=== PATIENT | male | born 1960 | race Caucasian/White ===

== ENCOUNTER 2024-12-10 05:59 | Inpatient (IN) | payer OTHER, SELFPAY ==
[2024-12-10] VITALS (9 sets, daily range): BP systolic 129–153; BP diastolic 74–88; BMI 27.1; BMI 26.3
[2024-12-10 03:59] LABS: Hematocrit 44.2 % (39.0-52.0); Hemoglobin 15.3 g/dL (13.0-18.0); Mean Corp Hgb Conc. 34.6 g/dL (33.0-37.0); Mean Corpuscular Volume 88.9 fL (80.0-94.0); Nucleated Red Blood Cells % 0 % (-); Platelet Count 150 10^3/uL (130-400); Red Cell Dist. Width 11.9 % (11.5-14.5)
[2024-12-10 04:19] LABS: Urine Character Clear (Clear)
[2024-12-10 04:26] LABS: ALT (SGPT) 545 U/L (0-50); AST (SGOT) 544 U/L (17-59); Albumin 4.8 g/dl (3.5-5.0); Alkaline Phosphatase 200 U/L (38-126); Blood Urea Nitrogen 15 mg/dl (9-20); Calcium 9.9 mg/dl (8.4-10.2); Carbon Dioxide 30 mmol/L (22-30); Chloride 107 mmol/L (98-107); Estimated Creatinine Clearance 81 ml/min; Glucose 103 mg/dl (70-99); Lipase 99 U/L (23-300); Potassium 4.3 mmol/L (3.5-5.1); Sodium 142 mmol/L (135-145); Total Protein 7.5 g/dl (6.3-8.2); eGFR > 60.00
[2024-12-10 04:48] LABS: Urine Squamous Cell 0-2 /LPF (Few)
[2024-12-10] MEDS: ZOFRAN 4 MG IV (04:49)
[2024-12-10] MEDS: DILAUDID 0.5 MG IV (04:49)
--- NOTE | 2024-12-10 05:20 | ED.GENMED ---
History of Present Illness
General
Chief Complaint: Abdominal Pain
Source: patient
Exam Limitations: none
Time Seen by Provider: 12/10/24 03:41
Nursing documentation reviewed up to this point in time: agreed with
History of Present Illness
History of Present Illness:
Note:
CHIEF COMPLAINT(S)
Nausea, bloating, and headache.
HISTORY OF PRESENT ILLNESS
The patient is a 64-year-old male who presented with nausea and a sensation described as 'a bowling ball' in the stomach, beginning on Tuesday around 11 a.m. after having breakfast. The patient experienced bloating and discomfort throughout the day
and chose to rest and sleep despite the discomfort. On the subsequent day, the patient consumed a meal at 1 p.m., which exacerbated the symptoms, leading to extreme discomfort and bloating, yet without vomiting or diarrhea. The patient reported mild
constipation but denied any fever, chest pain, or dyspnea. A significant headache occurred, which the patient described as one of the worst ever experienced. The patient does not frequently experience headaches and did not take any medication due to
concerns about ibuprofen exacerbating stomach issues. The symptoms, especially the bloating, seem to occur postprandially. Despite owning a gallbladder, there was no significant tenderness, only generalized abdominal bloating. The patient noted that
the symptoms were intense during the night, particularly at 1 a.m. when attempting to sleep, but began to subside slightly.
PLAN
Consider performing a computed tomography (CT) scan to rule out any potential obstruction. Administer intravenous fluids to the patient and provide further medical intervention as needed based on the findings.
DIFFERENTIAL DIAGNOSIS
The Differential Diagnosis includes, in no particular order and is not limited to:
1. Gallbladder disease
2. Gastroenteritis
3. Gastric outlet obstruction
4. Peptic ulcer disease
5. Gastric volvulus
6. Chronic gastritis
7. Intestinal obstruction
8. Gastroparesis
9. Irritable bowel syndrome
10. Acute pancreatitis
Disposition:
SUMMARY OF ENCOUNTER
The patient, a 64-year-old male, presented to the emergency department with two days of right upper quadrant abdominal pain intensified by food intake. The pain was most severe at night, prompting the visit. He denied symptoms like fever, chills,
nausea, or vomiting.
DISPOSITION
Admit.
ASSESSMENT
The patients symptoms and elevated liver function tests suggest a possible hepatobiliary condition or gallbladder-related issue.
MANAGEMENT OF THE PATIENTS CARE WAS DISCUSSED WITH
Consultation was conducted with Lin Casanova from Gastroenterology, who recommended that the patient could be admitted and undergo further evaluation in the morning.
PLAN
An MRI was planned for the following morning to further investigate the cause of the patients symptoms and elevated liver enzymes. The patient is to remain NPO (nil per os).
INDEPENDENT REVIEW OF LABS AND INTERPRETATION OF TESTS
My independent review of the lab work indicates an elevated total bilirubin and elevated liver function tests, including AST and ALT.
MEDICAL DECISION MAKING
-Complexity of Data Reviewed: Chronic conditions affecting care include the potential differential diagnosis of gallbladder disease or other hepatobiliary disorders. The DDx includes: Gastroenteritis, Gallbladder disease, Gastric outlet obstruction,
Peptic ulcer disease, Gastric volvulus, Chronic gastritis, Intestinal obstruction, Gastroparesis, Irritable bowel syndrome, Acute pancreatitis.
-Data:
Category 1: Lab tests reviewed showed elevated total bilirubin and elevated liver function tests (AST, ALT).
Category 3: Discussion of management with Lin Casanova, Gastroenterology, regarding patient care and the plan for an MRI and hospital admission.
DIAGNOSIS
Elevated liver function tests; possible hepatobiliary disorder (ICD-10: K75.9 - Inflammatory liver disease, unspecified).
Phy Exam
General Physical Exam
General Presentation: moderate distress
General age: appears stated age
General Skin: warm and dry
General Habitus: normal
General Mental: alert
General Hydration: appears well hydrated
ENT Exam
ENT Exam: EOMI, pharynx normal, neck supple and normocephalic
Eye Exam
Eye Exam: PERRL, cornea clear and conjunctiva normal
Cardiovascular Exam
Cardiovascular Exam: regular rate/rhythm, no edema, no murmur and normal peripheral pulses
Pulmonary Exam
Pulmonary Exam: lungs clear, no respiratory distress, no rales, no crackles, no rhonchi, no stridor, no wheezing and no cough
Gastrointestinal Exam
Gastrointestinal Exam: normal bowel sounds, non tender, soft, no organomegaly, no pulsatile mass and non distended
Neurological Exam
Neurological Exam: alert, oriented x3, no motor deficits and speech normal
Musculoskeletal Exam
Musculoskeletal Exam: full ROM and no edema
Skin Exam
Skin Exam: normal color, warm/dry, no rash and no petechia
Psychiatric Exam
Psychiatric Exam: normal mood/affect
Course
Orders/Labs/Results
Orders:
Orders
12/10/24 02:45
IV Insert/Care/Rem.- Treatment PRN
Straight cath- Treatment ONCE
12/10/24 03:47
Complete Blood Count/With Diff Urgent
Comprehensive Metabolic Panel Urgent
Lipase Urgent
Urinalysis Reflex To Culture Urgent
Date Specimen was Collected: 12/10/24
Time Specimen was Collected: 02:45
Urine Microscopic Reflex Cult Urgent
Urine Culture Urgent
COTY Source: U
Specimen Description:
Date Specimen was Collected: 12/10/24
Time Specimen was Collected: 02:45
12/10/24 03:54
CT Abd/pelvis W Iv Cont Urgent
Comment:
Reason For Exam: Diffuse abdominal pain with lower hyperactive bs
12/10/24 04:33
US Abdomen Complete/Upper Urgent
Comment:
Reason For Exam: abdominal pain
12/10/24 04:37
HYDROmorphone [Dilaudid] 0.5 mg IV NOW STA
Ondansetron Injectable [Zofran] 4 mg IV NOW STA
Abnormal Lab Results
12/10/24
03:47
MPV 11.9 H fL
(7.4-10.4)
Absolute Monos (auto) 0.7 H 10^3/uL
(0.1-0.6)
Monocytes % 11.1 H %
(1.7-9.3)
Glucose 103 H mg/dl
(70-99)
Total Bilirubin 6.3 H mg/dl
(0.2-1.3)
AST 544 H* U/L
(17-59)
ALT 545 H* U/L
(0-50)
Alkaline Phosphatase 200 H U/L
(38-126)
Urine Ketones 1+ A
(Negative)
Urine Bilirubin 2+ A
(Negative)
Urine Urobilinogen 4+ A
(Neg - 1+)
Leukocyte Esterase Rfl 1+ A
(Negative)
Urine RBC 3-6 A /HPF
(0-2)
Urine Bacteria (Reflex) Few A
(Negative)
Urine Albumin (Reflex) 1+ A
(Neg - Trace)
12/10/24 03:47
12/10/24 03:47
Vital Signs
Initial and Last Documented VS:
Initial Vital Signs
Temp Pulse Resp BP Pulse Ox
98.4 F 62 20 152/88 99
12/10/24 02:39 12/10/24 02:39 12/10/24 02:39 12/10/24 02:39 12/10/24 02:39
Last Documented Vital Signs
Temp Pulse Resp BP Pulse Ox
98.4 F 62 20 153/79 97
12/10/24 02:39 12/10/24 02:39 12/10/24 02:39 12/10/24 04:00 12/10/24 05:21
*Radiology
Radiology exam reviewed: radiology read reviewed
*Pulse Oximetry
SaO2: 97
Oxygen Mode of Delivery: Room air
Patient hypoxic: no
*Critical Care Note
Total Time (30-74mins, 75-104mins- exclusive of procedures): 41 (Critical care statement: A total of 41 minutes of critical care time was provided for this patient. This time is separate from time utilized to perform the aforementioned documented
procedures. Aggregate critical care time includes only time during which I was engaged in work directl)
Update Note
Update Note:
NAME: SUNITA DOE
DATE OF EXAM: 12/10/2024
Patient No: [id number]
Physician: KEISHA^Lroenzo
Date of : 1960
Past Medical History (entered by Technologist):
Reason For Exam (entered by Technologist):
Other Notes (entered by Technologist):
Additional Information (per [facility]): Right upper quadrant pain since Tuesday.
RUQ ABDOMINAL ULTRASOUND
IMPRESSION:
Bowel gas mildly decreases characterization
Normal bowel gallstones and sludge at the neck, possibly impacted. Gallbladder is mildly distended but no wall thickening. No sonographic Grant's sign (but the patient received pain medications). No or other signs of cholecystitis. Common bile
duct is dilated at 9 mm no definite filling defect in the duct however the distal duct is obscured by bowel gas. Constellation findings are nonspecific, if there is concern for choledocholithiasis consider MRCP.
Fatty liver
Pancreas is partially obscured secondary to overlying bowel gas.
Kidneys and spleen are unremarkable
Remainder of the visualized upper abdomen is unremarkable.
ED Attending Note
-
Portions of this chart may have been created with voice recognition software.� Occasional wrong word or��sound alike� substitutions may have occurred due to the inherent limitations of voice recognition software.
Discharge Plan
Departure
Patient Disposition: Admit
Date of Disposition: 12/10/24
Time of Disposition: 05:42
Presentation/result/management discussed w/ accepting MD/DO: Hospitalist
Discharge Problem:
Abdominal pain, Choledocholithiasis
Referrals:
Sharif Mathew DO [Family Provider, Family Practice]
Interventions
Interventions:
*Risk Screen - Suicide Last Done: 12/10/24 02:39
*General Assessment Last Done: 12/10/24 02:39
*Neglect/Abuse Screening Last Done: 12/10/24 02:39
*ED- Fall Risk Assessment Last Done: 12/10/24 02:39
*ED COVID-19 Vaccine History Last Done: 12/10/24 02:39
VZ-Xpyaan-Jwdqfiiypq Assessment Last Done: 12/10/24 03:58
Discharge Date and Time
Print Language: CITIZEN OF [place]
--- NOTE | 2024-12-10 05:43 | HPS.HSE ---
Family Physician
-
Family Physician: Sharif Mathew
Chief Complaint
-
Abdominal pain
History of Present Illness
This is a 64-year-old male who has no known significant past medical history and denies any daily medication use presents to the emergency department with 2 days of abdominal pain.
Patient reports that after having breakfast on Tuesday started having diffuse abdominal discomfort without any radiation. Reports nausea but denies any vomiting. He performed bowel rest himself and his symptoms slightly improved. However later
on the evening and the following morning he had breakfast again and the symptoms recurred. This time he has persistent symptoms unrelenting. Its associate with nausea but no vomiting. He denies having any diarrhea. He denies having any fevers or
chills. He is unable to localize it to any specific quadrant. Due to the unrelenting discomfort he said come to the emergency department for evaluation. He denies any prior surgeries. He denies any prior endoscopic procedures except for
screening colonoscopy.
In the emergency department patient was afebrile, blood pressure was 150/80 with a pulse of 62 satting 97% on room air.
CBC was unremarkable, electrolytes BUN and creatinine were all within the normal range, total bilirubin was 6.3, AST 544 ALT over 500 and alk phos 200. Lipase negative.
Ultrasound of the abdomen with gallstones and sludge at the neck possibly impacted, gallbladder is mildly distended with no wall thickening, no sonographic Grant sign. No other signs of cholecystitis. Common bile duct is dilated at 9 mm with no
definite filling defect.
Medical History
Past Medical History
Past Medical History: Reports None
Past Surgical History: Reports None
Social History
Tobacco: Non-smoker
Alcohol: None
Drug: None
Family History
Family History: Not pertinent
Allergies / Home Medications
Allergies reflects when Allergies were last updated in [facility].
Home Medications with original date entered in [facility]
Allergy/Medication List:
Allergies
Allergy/AdvReac Type Severity Reaction Status Date / Time
No Known Allergies Allergy Unverified 12/10/24 02:38
Review of Systems
-
Constitutional: Reports No Symptoms
EENT: Reports No Symptoms
Respiratory: Reports No Symptoms
Cardiac: Reports No Symptoms
Abdomen/GI: Reports Abdominal Pain and Nausea
: Reports No Symptoms
Musculoskeletal: Reports No Symptoms
Skin: Reports No Symptoms
Neurological: Reports No Symptoms
Endocrine: Reports No Symptoms
Hematologic/Lymphatic: Reports No Symptoms
Psych: Reports No Symptoms
Physical Exam
Vital Signs
Vital Signs
Temp Pulse Resp BP Pulse Ox
98.4 F 62 20 153/79 97
12/10/24 02:39 12/10/24 02:39 12/10/24 02:39 12/10/24 04:00 12/10/24 05:21
Physical Exam
General: Well Developed, Well Nourished and No Apparent Distress
HEENT: NormoCephalic, Moist mucous membranes and Atraumatic
Respiratory: Clear
Cardiac: S1/S2 and Regular Rhythm; No Murmur or Rub
GI: Soft, Non Tender, Non Distended and Normal Bowel Sounds; No Organomegaly
Rectal: Deferred by Provider
Musculoskeletal: No Clubbing, No Cyanosis and No Edema
Skin: No Rash
Neuro: Nonfocal/grossly intact
Laboratory Results
-
12/10/24 03:47
12/10/24 03:47
Laboratory Results
Total Bilirubin 6.3 mg/dl (0.2-1.3) H 12/10/24 03:47
AST 544 U/L (17-59) H* 12/10/24 03:47
ALT 545 U/L (0-50) H* 12/10/24 03:47
Alkaline Phosphatase 200 U/L (38-126) H 12/10/24 03:47
Lipase 99 U/L (23-300) 07/07/25 03:47
Data Reviewed
-
Ultrasound: Report Reviewed by me
Lab Data: Labs Reviewed by me
Old Records: Reviewed
Impression/Plan
-
IMPRESSION:
64-year-old with acute abdominal pain, found to have elevated total bilirubin of 6.3, AST of 500s and ALT in the 500s. Also elevated alk phos to 200. Lipase was normal. Right upper quadrant ultrasound with gallstones and sludge possibly impacted
at the neck of the gallbladder with dilation of the common bile duct to 9. Patient without any fevers chills or leukocytosis. No sonographic Grant sign. No evidence of acute cholecystitis. No evidence of cholangitis. Patient most likely
consistent with choledocholithiasis rather than other causes of her biliary obstruction.
PLAN:
Choledocholithiasis
-Admit to [facility]
-CT of the abdomen pelvis is pending from ED
-Discussed with gastroenterology, n.p.o. for now, no indication for MRCP given pretest probability patient likely can go straight to ERCP
-Pain control, IV fluids, antiemetics
-Trend LFTs
-surgery consult given possibility of impacted stones/sludge in neck of gallbladder
-Hold off antibiotics for now
DVT PPX - lovenox sq
Code status - Full Code
--- NOTE | 2024-12-10 07:29 | W.PN.HOSP.TC ---
Addendum entered and electronically signed by Aaron Gee MD 12/10/24 21:30:
Attending Addendum-
I saw and evaluated the patient. I reviewed the resident�s note and agree with findings and plan as documented in the resident�s note. Sub: Complains of epigastric pain. No NV fevers cills. 'Can i have some liquids?' Full 12 point ROS reviewed and
negative except as documented Exam: Vitals reviewed in chart GEN-NAD heart RRR lungsl clear abd soft TTP epigastric area LE no edema
Plan:
#Choledocholithiasis
-CT A/P- 12/10-mild intrahepatic and extra hepatic biliary duct dilation with a questionable 4 mm opacity in the distal common bile duct suspicious for choledocholithiasis. Biliary stones and sludge present within the gallbladder neck.
-ABD U/S 12/10- The common bile duct is dilated measuring 9 mm.
-NPO IVF for ERCP 12/10
-Pain control, IV fluids, antiemetics
-Trend LFTs
-surgery input appreciated- likely OR in AM if able for lap adrian after ERCP
-Hold off antibiotics for now
-NPOpMN
# Transaminitis
- from choledocholithiasis
-trend, repeatr CMP in am
DVT PPX - lovenox sq
Code status - Full Code
ACP
Patient consented to discuss, was alone, time spent explanation of advance directives, changes in health status, patient�s health care wishes if the patient becomes unable to make health decisions, goals of care, code status, and prognosis- 16
minutes
Time spent coordinating care, review of plan of care with resident, personally reviewed previous records in EMR, med rec, labs, radiology, d/w nursing, family total time documented is exclusive of any additional time listed that was spent in advance
care planning discussion -� 51 minutes
Original Note:
Today's Communication/Plan
-
ERCP done today around 15.14PM
CBC, CMP Tomorrow
NPO Tonight because of tomorrow cholecystectomy procedure.
Assessment / Plan
Assessment / Plan
64 yr Male arrived to ER for right abdominal pain
# Choledocholithiasis:
On 12/10/24:
AST 544 (H), ALT 545 (H), ALP 200 (H), Lipase 99 (H)
USG ABDOMEN:Biliary stones and sludge present within the gallbladder neck along with CBD dilation measuring 9mm.
CT Abd/ pelvis W iv contrast:
mild intrahepatic and extra hepatic biliary duct dilation with a questionable 4 mm opacity in the distal common bile duct suspicious for choledocholithiasis.
Biliary stones and sludge present within the gallbladder neck.
Pt kept on NPO
Gastro consulted
ERCP done on 12/10 3.39 PM
sphincterotomy performed, and a balloon was distended to sweep the common bile duct.
sludge and stones were removed.
NPO tonight.
Nicolas Cholecystectomy
DVT prophylaxis: Lovenax 40mg SC
CODE: Full code
Anticipated Discharge: > 48 hours
Subjective/Interval History
-
Date of Service: December 10, 2024
64 yrs M had concerns for mild abdominal pain ( non radiating, non colicky).
On NPO becasue of ERCP procedure at later in the afternoon.
Objective Data
-
Labs:
12/10/24 03:47
12/10/24 03:47
Laboratory Results
Total Bilirubin 6.3 mg/dl (0.2-1.3) H 12/10/24 03:47
AST 544 U/L (17-59) H* 12/10/24 03:47
ALT 545 U/L (0-50) H* 12/10/24 03:47
Alkaline Phosphatase 200 U/L (38-126) H 12/10/24 03:47
Lipase 99 U/L (23-300) 12/10/24 03:47
Laboratory Results
12/10/24
03:47
WBC 5.9
Hgb 15.3
Hct 44.2
Plt Count 150
Sodium 142
Potassium 4.3
Chloride 107
Carbon Dioxide 30
BUN 15
Creatinine 1.0
Glucose 103 H
Calcium 9.9
Total Bilirubin 6.3 H
AST 544 H*
ALT 545 H*
Alkaline Phosphatase 200 H
Vital Signs:
Vital Signs
Temp Pulse Resp BP Pulse Ox
98.4 F 62 14 140/78 95
12/10/24 02:39 12/10/24 06:15 12/10/24 06:15 12/10/24 06:01 12/10/24 06:15
Review of Systems
-
History Source: Patient
Constitutional: Reports No Symptoms
Respiratory: Reports No Symptoms
Cardiac: Reports No Symptoms
Abdomen/GI: Reports Abdominal Pain (mild (pain scale- 2/10) )
Genitourinary: Reports No Symptoms (concentrated urine.)
Musculoskeletal: Reports No Symptoms
Skin: Reports No Symptoms
Neuro: Reports No Symptoms
Endocrine: Reports No Symptoms
Hematologic / Lymphatic: Reports No Symptoms
Allergy / Immunology: Reports No Symptoms
Physical Exam
-
General: Comfortable
HEENT: Anicteric (mild icteric)
Respiratory: Clear to Auscultation
Cardiac: Regular Rhythm and S1/S2
GI: Soft and Nontender (Because of pain medications. )
Genito-urinary: No Costovertebral Tender
Skin: Warm
--- NOTE | 2024-12-10 08:00 | PTCARENOTE ---
Received patient form ED. AAOx3. Ambulated form stretcher to bed without difficulty. Complained of minor discomfort in abdomen but declined any pain medications. Can make needs knows. All safety measures are in place. Plan of care is ongoing.
Oriented to unit.
[2024-12-10] MEDS: LR 1000 IV (08:11)
--- NOTE | 2024-12-10 09:14 | CON.GI ---
Addendum entered and electronically signed by ALESHA Méndez 12/10/24 11:10:
reviewed with Dr. Casanova plan for ERCP today. Pt aware and updated -- all questions answered with risk/benefit
Addendum entered and electronically signed by ALESHA Méndez 12/10/24 10:02:
I also reviewed with pt as noted with Dr. Casanova-- Pt also admits to Zepbound use with wt loss 1 year ago and and family hx colon Ca in father with regular screening every 5 years. I did leave a message with radiology for reading to CT and US.
Discussed cutting back ETOH, NSAID use. Plan as below.
Original Note:
Consultation
-
Date/Time Consultation Requested: 12/10/24
Date/Time Consultation Performed: 12/10/24
Requesting Provider: Piter Owens
Performing Provider: Rosa Casanova
Reason for Consultation: Elevated LFTs, choledocholithiasis.
Medical History
Chief Complaint / HPI
Chief Complaint: Abdominal pain
History of Present Illness:
Leighton Duarte is a 64 y.o. male with no significant pmhx who presents with 1-2 days of overall abdominal discomfort and bloating. He was found to have significantly elevated LFTs on admission, Tbili 6.3, AST 544, ALT >500, alk phos 200, Lipase WNL. He
was afebrile and normotensive, no leukocytosis. Ultrasound of the abdomen with gallstones and sludge at the neck possibly impacted, gallbladder is mildly distended with no wall thickening, no sonographic Grant sign. No other signs of
cholecystitis. Common bile duct is dilated at 9 mm with no definite filling defect. He denies having symptoms of biliary colic. No blood thinners but does admit to NSAIDs for joint pain, plays pickleball. sometimes 2 tablets of iburpofen daily, but
has not taken any NSAIDs since Tuesday. There are some weeks when he doesn't take any NSAIDs. No prior EGD. Reports having a few colonoscopies in the past. Denies family history of GI malignancy or gallbladder issues.
Past Medical History
Past Medical History: None
Past Surgical History: None
Social History
Tobacco: Non-Smoker
Alcohol: None
Drug: None
Family History
Family History: Reviewed & Not Pertinent
Allergies / Home Medications
Allergy/AdvReac Type Severity Reaction Status Date / Time
No Known Allergies Allergy Unverified 12/10/24 02:38
Review of Systems
-
History Source: Patient
All other systems: A 12 pt ROS was Negative except as stated above in HPI
Vital Signs
Temp Pulse Resp BP Pulse Ox
98.4 F 61 18 142/81 98
12/10/24 07:10 12/10/24 07:10 12/10/24 07:10 12/10/24 07:10 12/10/24 07:10
Physical Exam
Exam
General: Well Developed, Well Nourished and No Apparent Distress
GI: Soft, Non Tender, Non Distended and Normal Bowel Sounds
Results
WBC 5.9 10^3/uL (4.8-10.8) 12/10/24 03:47
Hgb 15.3 g/dL (13.0-18.0) 12/10/24 03:47
Hct 44.2 % (39.0-52.0) 12/10/24 03:47
MCV 88.9 fL (80.0-94.0) 12/10/24 03:47
Plt Count 150 10^3/uL (130-400) 12/10/24 03:47
Absolute Neuts (auto) 3.9 10^3/uL (1.4-6.5) 12/10/24 03:47
Sodium 142 mmol/L (135-145) 12/10/24 03:47
Potassium 4.3 mmol/L (3.5-5.1) 12/10/24 03:47
Chloride 107 mmol/L (98-107) 12/10/24 03:47
Carbon Dioxide 30 mmol/L (22-30) 12/10/24 03:47
BUN 15 mg/dl (9-20) 12/10/24 03:47
Creatinine 1.0 mg/dL (0.7-1.3) 12/10/24 03:47
Calcium 9.9 mg/dl (8.4-10.2) 12/10/24 03:47
Total Bilirubin 6.3 mg/dl (0.2-1.3) H 12/10/24 03:47
AST 544 U/L (17-59) H* 12/10/24 03:47
ALT 545 U/L (0-50) H* 12/10/24 03:47
Alkaline Phosphatase 200 U/L (38-126) H 12/10/24 03:47
Lipase 99 U/L (23-300) 12/10/24 03:47
Diagnostic Image Results:
Prior GI Procedures:
EGD:
Colonoscopy:
Assessment / Plan
-
64 y.o. healthy male with no significant past medical history admitted with generalized abdominal pain and bloating found to have significantly elevated LFTs with evidence of choledocholithiasis and GB with mild distension and possible impacted
stone at the GB neck.
CT A/P w/ IV Contrast: GB is mildly distended with gallstones. Mild stranding adjacent to the GB. CBD dilated to 7mm with subtle 4 mm filling defect c/f choledocholilthiasis. Mild intrahepatic biliary ductal dilation. Pancreas appears unremarkable.
A/P:
-no signs of cholangitis
-IVF
-analgesia, antiemetics, prn
-NPO for ERCP with Dr. Krueger today
-surgery consult for eventual cholecystectomy following ERCP
Data Reviewed
-
CT Scan: Report Reviewed by me
Ultrasound: Report Reviewed by me
-
-
Thank you for consultation and allowing me to participate in the patient's care. Please call the [facility] specialist GI physician during the after hours with any questions or concerns.
--- NOTE | 2024-12-10 10:06 | CON.GS ---
Addendum entered and electronically signed by Enrique Medina MD 12/10/24 14:39:
I saw and examined the patient independently.
The Hammer Adjuster's note was reviewed and I agree with the note, assessment and plan except where noted below.
Comment: This is a 64-year-old male who presents with 4-day history of abdominal pain after eating fatty meal found to have CT imaging with concern for choledocholithiasis, ultrasound confirms additional gallstones.
GI consulted, plan for ERCP today. Appreciate recommendations.
Will plan for surgery this admission, potentially as early as tomorrow n.p.o. at midnight.
IV antibiotics.
DVT prophylaxis.
Surgery will follow
Original Note:
Consultation
-
Date/Time Consultation Performed: 12/10/24 1000
Medical History
-
Chief Complaint: epigastric pain
History of Present Illness:
Mr Duarte is a 64 yo male with no prior surgical history who presents with abdominal pain. He had a a turkey cheeseburger on Tuesday night an was awakened early the next morning with mid abdominal pain with nausea but no vomiting. He had a poor
appetite and didn't eat much that day. On Tuesday, he felt better and had a good sized lunch with return of symptoms throughout the day causing him to present to the ED early this am for evaluation. He received analgesics on admission and notes that
his pain has not returned since receiving them. He is nontender on exam, jaundice present. He denies active nausea. He denies fevers or chills. He notes dark urine but denies acholic stools.
Past Medical History
Past Medical History: None
Past Surgical History: None
Social History
Tobacco: Non-Smoker
Alcohol: None
Family History
Family History: Cancer (colon ca in father)
Allergies / Home Medications
Allergy/AdvReac Type Severity Reaction Status Date / Time
No Known Allergies Allergy Unverified 12/10/24 02:38
Review of Systems
-
History Source: Patient
All other systems: Negative unless noted
A 10 point review of systems was completed, and was negative except as per HPI.
Physical Exam
Vital Signs
Temp Pulse Resp BP Pulse Ox
98.4 F 61 18 142/81 98
12/10/24 07:10 12/10/24 07:10 12/10/24 07:10 12/10/24 07:10 12/10/24 07:10
12/09/24 12/10/24 12/11/24
06:59 06:59 06:59
Actual Weight 88 kg 85.417 kg
Body Mass Index (BMI) 26.3
Lab Results
12/10/24 03:47
12/10/24 03:47
WBC 5.9 10^3/uL (4.8-10.8) 12/10/24 03:47
Hgb 15.3 g/dL (13.0-18.0) 12/10/24 03:47
Hct 44.2 % (39.0-52.0) 12/10/24 03:47
Plt Count 150 10^3/uL (130-400) 12/10/24 03:47
Abs Immat Gran (auto) 0.0 10^3/uL (0-0.05) 12/10/24 03:47
Neutrophils % 65.6 % (42.2-75.2) 12/10/24 03:47
Physical Exam
General: Well Developed and Well Nourished
HEENT: Moist Mucous Membranes
Respiratory: Non Labored Respirations
GI: Soft, Non Tender and Non Distended
Skin: Jaundice
Neuro: Awake, Alert and AO x 3
Psych: Calm
Data Reviewed
-
CT Scan: Image Personally Visualized and interpreted, Report Reviewed by me, Discussed with Physician and Discussed with Patient
Ultrasound: Image Personally Visualized and interpreted, Report Reviewed by me, Discussed with Physician and Discussed with Patient
Labs: Labs Reviewed by me, Discussed with Physician and Discussed with Patient
Assessment / Plan
-
64 yo male presenting with 2 days of epigastric to mid abdominal pain with jaundice. CT imaging with concern for choledocholithiasis as a filling defect noted on the preliminary read. US with dilation of the CBD and gallstones noted. Mild
gallbladder distention present. There is no wall thickening or edema to suggest acute cholecystitis. AFVSS. Normal WBC counts. LFTs with markedly elevated bilirubin of 6.3 (fractionated bili pending), transaminitis present. Lipase normal. Pain
currently resolved.
Plan:
Gastroenterology following with plan for MRCP vs ERCP today
Keep NPO
Trend labs/exams
Discussed surgical management for laparoscopic cholecystectomy once choledocholithiasis cleared
[2024-12-10] MEDS: TYLENOL 650 MG PO (17:11)
[2024-12-10 20:44] LABS: Hepatitis C Antibody Negative (Negative)
[2024-12-11] VITALS (10 sets, daily range): BP systolic 124–149; BP diastolic 67–78
--- NOTE | 2024-12-11 06:50 | W.PN.HOSP.TC ---
Addendum entered and electronically signed by Aaron Gee MD 12/12/24 15:45:
Attending Addendum-
I saw and evaluated the patient. I reviewed the resident�s note and agree with findings and plan as documented in the resident�s note. Sub: feels great. No complaints. Seen with . No NV fevers chills. Full 12 point ROS reviewed and negative
except as documented Exam: Vitals reviewed in chart GEN-NAD heart RRR lungs clear abd soft lap incisions CDI LE no edema
Plan:
#Choledocholithiasis
-CT A/P- 12/10-mild intrahepatic and extra hepatic biliary duct dilation with a questionable 4 mm opacity in the distal common bile duct suspicious for choledocholithiasis. Biliary stones and sludge present within the gallbladder neck.
-ABD U/S 12/10- The common bile duct is dilated measuring 9 mm.
-ERCP 12/10-sphincterotomy with stone extraction
-Pain control, IV fluids, antiemetics
-Trend LFTs
-12/11- lap adrian no complications
- IK to DC home
# Transaminitis
- from choledocholithiasis
- resolved
DVT PPX - lovenox sq
Code status - Full Code
Time spent coordinating care, DC planning, review of DC plan of care with resident, transition of care, review of records, med rec/scripts sent electronically, consults, notes, d/w consultants, nursing, family, and CM� 31 mins >50% of this time was
devoted to counseling and coordination of care
Original Note:
Today's Communication/Plan
-
Lap cholecystectomy
Assessment / Plan
Assessment / Plan
64 yr Male arrived to ER for right abdominal pain
# Choledocholithiasis:
Pt admits to Zepbound use with wt loss 1 year ago
Family hx colon Ca in father with regular screening every 5 years.
Discussed cutting back ETOH, NSAID use.
On 12/11/24:
AST 183 (H), ALT 454(H), ALP 197 (H), Lipase 70 (H)
USG ABDOMEN:Biliary stones and sludge present within the gallbladder neck along with CBD dilation measuring 9mm.
CT Abd/ pelvis W iv contrast:
mild intrahepatic and extra hepatic biliary duct dilation with a questionable 4 mm opacity in the distal common bile duct suspicious for choledocholithiasis.
Biliary stones and sludge present within the gallbladder neck.
Pt kept on NPO
Gastro consulted
ERCP done on 12/10 3.39 PM
sphincterotomy performed, and a balloon was distended to sweep the common bile duct.
sludge and stones were removed.
Lap Cholecystectomy done around 9.17 AM
Wound care management:
Allow the glue to flake off your incisions on its own over the next 2-3 weeks.
Avoid scrubbing or picking off.
not to soak in tubs or pools until incisions healed.
PCP: Sharif Burrows
DVT prophylaxis: Lovenax 40mg SC
CODE: Full code
Anticipated Discharge: Today
Subjective/Interval History
-
Date of Service: December 11, 2024
Pt doesnt have a concerns for abdominal pain.
Today morning pt went for Laproscopic Cholecystectomy.
Objective Data
-
Labs:
Laboratory Results
12/11/24 06:32
12/11/24 06:32
Laboratory Results
Total Bilirubin 2.7 mg/dl (0.2-1.3) H D 12/11/24 06:32
AST 183 U/L (17-59) H 12/11/24 06:32
ALT 454 U/L (0-50) H 12/11/24 06:32
Alkaline Phosphatase 197 U/L (38-126) H 12/11/24 06:32
Lipase 70 U/L (23-300) 12/11/24 06:32
Vital Signs:
Vital Signs
Temp Pulse Resp BP Pulse Ox
98.2 F 58 16 129/74 97
12/10/24 23:23 12/10/24 23:23 12/10/24 23:23 12/10/24 23:23 12/10/24 23:23
Review of Systems
-
History Source: Patient
All other systems: Reviewed and negative
Physical Exam
-
General: Well Developed
Respiratory: Clear to Auscultation
Cardiac: Regular Rhythm and S1/S2
GI: Soft and Nontender
Genito-urinary: No Costovertebral Tender
Musculoskeletal: No Clubbing
Skin: Warm
Neuro: AO x 3
Hematologic / Lymphatic: No Lymphadenopathy
Psych: Calm
--- NOTE | 2024-12-11 07:16 | W.PN.GS2 ---
Today's Communication / Plan
-
-- Laparoscopic cholecystectomy with IOC
Assessment / Plan
-
Patient is a 64 yo M p/w abdominal pain secondary to choledocholithiasis
PPD#1 s/p ERCP with sphincterotomy and stone extraction
AVSS
Labs pending
Recovering well from the ERCP; no concern for post ERCP pancreatitis.
The natural history and pathophysiology of biliary and stone disease was reviewed. Role of cholecystectomy in preventing future episodes of biliary colic, cholecystitis, or choledocholithiasis was reviewed. Recommend and plan for cholecystectomy.
Plan for laparoscopic cholecystectomy. The procedure itself, as well as the risks, benefits, and alternatives was discussed. Specifically, we discussed the risks of bleeding, infection, injury to surrounding structures (bowel, bile ducts), CBD
injury, need for open procedure. Typical postprocedure recovery including pain management, activity limitations, and a 10 to 20% risks of fluctuations in GI function was discussed. All questions answered. Consent signed.
-- Laparoscopic cholecystectomy with IOC
-- NPO, IVF
-- Antibiotics: Zosyn
Subjective Data
-
Date of Service: December 11, 2024
Abdominal pain improved. No nausea or vomiting. No fevers. In retrospect, he does report a more mild attack of discomfort approximately 3 to 4 months ago.
Objective Data
-
Intake and Output
12/10/24 12/11/24 12/12/24
06:59 06:59 06:59
Other:
Number of approximated MODERATE 2
amounts of urine
Vital Signs
Temp Pulse Resp BP Pulse Ox
98.2 F 58 16 129/74 97
12/10/24 23:23 12/10/24 23:23 12/10/24 23:23 12/10/24 23:23 12/10/24 23:23
Calcium 9.9 mg/dl (8.4-10.2) 12/10/24 03:47
Total Bilirubin 6.3 mg/dl (0.2-1.3) H 12/10/24 03:47
Direct Bilirubin 3.4 mg/dl (0.0-0.4) H 12/10/24 03:47
AST 544 U/L (17-59) H* 12/10/24 03:47
ALT 545 U/L (0-50) H* 12/10/24 03:47
Alkaline Phosphatase 200 U/L (38-126) H 12/10/24 03:47
Total Protein 7.5 g/dl (6.3-8.2) 12/10/24 03:47
Albumin 4.8 g/dl (3.5-5.0) 12/10/24 03:47
Physical Exam
-
Gen: NAD
Abd: soft, NT/ND, non-peritoneal
Patient has a clay catheter: No
Patient has a central line: No
--- NOTE | 2024-12-11 07:20 | W.SUR.PREOP ---
Pre-Operative Surgical Note
-
I have examined this patient prior to the performance of the scheduled procedure.
The patient's condition is unchanged from the time of the current History and
Physical and the patient is able to undergo the scheduled procedure.
--- NOTE | 2024-12-11 08:29 | W.PN.GI.CBS2 ---
Today's Communication / Plan
-
s/p ERCP w/ sphincterotomy. NPO for cholecystectomy today. GI will sign off, please call with questions
Assessment / Plan
-
64 y.o. healthy male with no significant past medical history admitted with generalized abdominal pain and bloating found to have significantly elevated LFTs with evidence of choledocholithiasis and GB with mild distension and possible impacted
stone at the GB neck.
CT A/P w/ IV Contrast: GB is mildly distended with gallstones. Mild stranding adjacent to the GB. CBD dilated to 7mm with subtle 4 mm filling defect c/f choledocholilthiasis. Mild intrahepatic biliary ductal dilation. Pancreas appears unremarkable.
A/P:
-s/p ERCP with sphincterotomy w/ Dr. Krueger on 12/10
-NPO for cholecystectomy today
-outpatient GI follow up for CRC surveillance given high risk with family history
Subjective
Subjective
Date of Service: December 11, 2024
Patient seen in follow-up, feels great, eager for cholecystectomy today. He had successful ERCP w/ sphincterotomy yesterday. AM labs pending.
Objective
Data Reviewed
Laboratory Data:
Laboratory Results
Total Bilirubin 6.3 mg/dl (0.2-1.3) H 12/10/24 03:47
AST 544 U/L (17-59) H* 12/10/24 03:47
ALT 545 U/L (0-50) H* 12/10/24 03:47
Alkaline Phosphatase 200 U/L (38-126) H 12/10/24 03:47
Lipase 99 U/L (23-300) 12/10/24 03:47
Vital Signs and I&O:
Vital Signs
Temp Pulse Resp BP Pulse Ox
98.2 F 58 16 129/74 97
12/10/24 23:23 12/10/24 23:23 12/10/24 23:23 12/10/24 23:23 12/10/24 23:23
Physical Exam
Physical Exam
HEENT: Anicteric and Moist mucous membranes
GI: Soft, Non Distended and Non Tender
[2024-12-11 08:30] LABS: ALT (SGPT) 454 U/L (0-50); AST (SGOT) 183 U/L (17-59); Albumin 4.7 g/dl (3.5-5.0); Alkaline Phosphatase 197 U/L (38-126); Blood Urea Nitrogen 16 mg/dl (9-20); Carbon Dioxide 22 mmol/L (22-30); Chloride 109 mmol/L (98-107); Estimated Creatinine Clearance 101 ml/min; Glucose 78 mg/dl (70-99); Lipase 70 U/L (23-300); Magnesium 2.4 mg/dl (1.6-2.3); Potassium 4.2 mmol/L (3.5-5.1); Sodium 139 mmol/L (135-145); Total Protein 7.1 g/dl (6.3-8.2); eGFR > 60.00
[2024-12-11 08:45] LABS: Calcium 9.5 mg/dl (8.4-10.2)
[2024-12-11 08:48] LABS: Hematocrit 44.9 % (39.0-52.0); Hemoglobin 15.3 g/dL (13.0-18.0); Mean Corp Hgb Conc. 34.1 g/dL (33.0-37.0); Mean Corpuscular Volume 88.4 fL (80.0-94.0); Nucleated Red Blood Cells % 0 % (-); Platelet Count 119 10^3/uL (130-400); Red Cell Dist. Width 11.6 % (11.5-14.5)
--- NOTE | 2024-12-11 09:17 | W.IMMPOSTOP ---
Surgical Immed Post Op Note
-
Primary Surgeon: Jessica
Assisting Surgeon: None
Pre-op Diagnosis: Choledocholithiasis
Post-op Diagnosis: Choledocholithiasis
Procedure Performed: Laparoscopic cholecystectomy with IOC
Anesthesia Type: General
Specimen / Cultures:
1. Gallbladder
Estimated Blood Loss: 7 cc
Complications: None
Operative Findings:
1. Normal appearing GB, thick bile
2. Critical view
3. IOC negative, anatomy confirmed
4. Duct and artery taken with clips
--- NOTE | 2024-12-11 15:30 | CM ---
CM met with pt in hallway
Pt is indep with his ADLs, denies use of DMEs
Indep throughout hallway and room
Pt noted he will be clearing for dc today
Spouse bedside and will transport home
PCP- Sharif Mathew
Rx- [facility]
Discharge Disposition- home no needs, spouse transport
--- NOTE | 2024-12-11 18:59 | W.DCSUMMARY ---
Addendum entered and electronically signed by Aaron Gee MD 12/12/24 15:45:
Read, Reviewed and Agree
Clemente Gee MD
Original Note:
Documented by User: Heidi Jiménez MD, Resident 12/11/24 19:40
Discharge Summary
Discharge Data
Date of Admission: 12/10/24
Date of Discharge: 12/11/24
-
Pending Results: No
Hospital Course
Discharging Physician : Dr Aaron Gee
Dr Louis Jiménez
Disposition : Home
Primary care physician : Dr Sharif Goldberg
Principal Discharge diagnosis : Choledocholithiasis
Chronic Discharge diagnosis : Nil
Hospital Course : On 12/10/2024 patient arrived to the ER with abdominal pain discomfort without radiation for the past 2 days. Pain increased after having meals and relieved by bowel rest. Associated with nausea. Lab workup done for CBC
electrolytes were all within the normal range. Total bilirubin 6.3, AST 544, ALT 545. Ultrasound abdomen showed biliary stones and sludge within the gallbladder neck. The common bile duct measured around 9 mm.IV fluids started patient kept on
n.p.o. pain was controlled with hydromorphone 0.5 mg, ketorolac 10 mg IV given. Ondansetron 4 mg IV administered for nausea. ERCP followed by laparoscopic cholecystectomy done. Wound care advised given to avoid scrubbing or picking off. not to
soak in tubs or pools until incisions healed. patient was discharged with acetaminophen 650 mg, ibuprofen 600 mg, oxycodone 5 mg. Patient was in Lovenax 40 mg SC for the DVT prophylaxis.follow-up with PCP in a week.
FULL CODE.
Important imaging findings :
ON 12/10- CT abdomen pelvis with IV contrast showed mild intrahepatic and extrahepatic biliary ductal dilation with 4 mm opacity in the distal CBD suspected for choledocholithiasis.
Procedure findings :
on 12/10/24 ERCP performed sphincterectomy along with sludge and stones were removed.
On 12/11/24: Laparoscopic cholecystectomy Operative findings includes:
1. Normal appearing GB, thick bile
2. Critical view
3. IOC negative, anatomy confirmed
4. Duct and artery taken with clips
Discharge Plan
-
Patient Disposition: Home (Routine Discharge)
Discharge Diagnosis/Procedures: Choledocholithiasis s/p ERCP s/p laparoscopic cholecystectomy
Condition: Good
Diet: Regular and Low Fat
Additional Diets: If you have loose stools after surgery, switch to a low fat diet
Activity: No strenuous activity
Additional Activity: Do not lift over 20lbs for the next 2-3 weeks
Bathing Restrictions: OK to Shower
Wound Care: Allow the glue to flake off your incisions on its own over the next 2-3 weeks. Avoid scrubbing or picking off. Do not soak in tubs or pools until incisions healed.
Activity Restrictions/Additional Instructions:
Call your surgeon if you have a fever >100.5, nausea with vomiting or worsening pain, yellowing of the eyes or skin
Referrals:
Sharif Mathew DO [Family Provider, Family Practice]
Tunde Lopez MD [Active, Surgical] - in two to four weeks
Prescriptions:
New
acetaminophen 325 mg tablet
650 mg PO Q4HPRN PRN (Reason: mild pain) Qty: 1 0RF
ibuprofen 200 mg tablet
400 - 600 mg PO Q6HPRN PRN (Reason: moderate pain) Qty: 1 0RF
oxycodone 5 mg tablet
5 mg PO Q4HPRN PRN (Reason: breakthrough/severe pain) Qty: 10 0RF
Discharge Orders:
Discharge Patient (As Directed); Ordered 12/11/24
Ordered By: Heidi Jiménez
Discharge Date and Time
Discharge Date/Time: 12/11/24 17:07
Print Language: LAO

Documented by User: aAron Gee MD 12/12/24 15:42
Discharge Summary
Discharge Data
Date of Admission: 12/10/24
Date of Discharge: 12/12/24
Discharge Plan
-
Patient Disposition: Home (Routine Discharge)
Discharge Diagnosis/Procedures: Choledocholithiasis s/p ERCP s/p laparoscopic cholecystectomy
Condition: Good
Diet: Regular and Low Fat
Additional Diets: If you have loose stools after surgery, switch to a low fat diet
Activity: No strenuous activity
Additional Activity: Do not lift over 20lbs for the next 2-3 weeks
Bathing Restrictions: OK to Shower
Wound Care: Allow the glue to flake off your incisions on its own over the next 2-3 weeks. Avoid scrubbing or picking off. Do not soak in tubs or pools until incisions healed.
Activity Restrictions/Additional Instructions:
Call your surgeon if you have a fever >100.5, nausea with vomiting or worsening pain, yellowing of the eyes or skin
Referrals:
Sharif Mathew DO [Family Provider, Family Practice]
Tunde Lopez MD [Active, Surgical] - in two to four weeks
Prescriptions:
New
acetaminophen 325 mg tablet
650 mg PO Q4HPRN PRN (Reason: mild pain) Qty: 1 0RF
ibuprofen 200 mg tablet
400 - 600 mg PO Q6HPRN PRN (Reason: moderate pain) Qty: 1 0RF
oxycodone 5 mg tablet
5 mg PO Q4HPRN PRN (Reason: breakthrough/severe pain) Qty: 10 0RF
Discharge Orders:
Discharge Patient (As Directed); Ordered 12/11/24
Ordered By: Heidi Jiménez
Discharge Date and Time
Discharge Date/Time: 12/11/24 17:07
Print Language: LAO
== END 2024-12-11 17:07 | disposition home or self-care (01) | DRG 409 ==
LOC: 4 EAST ACU 05:59
PROVIDERS: Internal Medicine Gastroenterology; Surgery; ADMITTING PHYSICIAN Internal Medicine; ATTENDING PHYSICIAN Family Medicine; CONSULT PHYSICIAN Internal Medicine; CONSULT PHYSICIAN Surgery; EMERGENCY PHYSICIAN Student in an Organized Health Care Education/Training Program; FAMILY PHYSICIAN Family Medicine
PROC: 0FC48ZZ Extirpation of Matter from Gallbladder, Via Natural or Artificial Opening Endoscopic (ICD-10-PCS; 2024-12-10)
PROC: 0FT44ZZ Resection of Gallbladder, Percutaneous Endoscopic Approach (ICD-10-PCS; 2024-12-11)
DX: K80.71 Calculus of gallbladder and bile duct without cholecystitis with obstruction (principal); R17 Unspecified jaundice
CPT/HCPCS: 74177; 74300; 74330; 76000; 76700; 80053; 81003; 81015; 82248; 83690; 83735; 85025; 86803; 87086; 88304; 96374; 96375; 99291; A4300; C1769; Q9967